=== PATIENT | male | born 1970 | race Caucasian/White ===

== ENCOUNTER 2017-07-20 15:42 | Emergency (ER) | payer MEDICARE, MEDICAID ==
--- NOTE | 2017-07-20 16:04 | EDM.PDOC ---
ED HPI GENERAL MEDICAL PROBLEM - General Stated Complaint: UTI Time Seen by Provider: 07/20/17 15:42 Source of Information: Reports: Patient, Family History Limitations: Reports: No Limitations - History of Present Illness INITIAL COMMENTS - FREE TEXT/NARRATIVE: 46 years old w m with h/o spina bifida, selfcathing, came to the ed with his family due to painful urination. Pt had UTIs in the past. No N/V/D or any other acute medical issues. No F/C. Onset: Unknown/Unsure Onset Date: 07/19/17 Onset Time: 07:00 Duration: Getting Worse, Intermittent Location: Reports: Abdomen Quality: Reports: Ache, Burning Severity: Mild Improves with: Reports: Medication Worsens with: Reports: Rest Context: Reports: Other (selfcathing due to spina bifida) bladder area Pain Score (Numeric/FACES): 4 - Related Data Allergies Allergy/AdvReac Type Severity Reaction Status Date / Time latex Allergy Respiratory Verified 07/20/17 17:27 Distress Home Meds: Home Meds Aspirin 81 mg PO DAILY 07/20/17 [History] Ciprofloxacin HCl [Cipro] 500 mg PO BID #20 tablet 07/20/17 [Rx] HCTZ/Triamterene [Dyazide 25-37.5 MG] 1 cap PO DAILY 07/20/17 [History] Levothyroxine 25 mcg PO DAILY 07/20/17 [History] Lisinopril 20 mg PO DAILY 07/20/17 [History] Omeprazole 20 mg PO DAILY 07/20/17 [History] fentaNYL [Fentanyl] 25 mcg .XX Q72H 07/20/17 [History] ED ROS GENERAL - Review of Systems Review Of Systems: See Below Constitutional: Reports: No Symptoms HEENT: Reports: No Symptoms Respiratory: Reports: No Symptoms Cardiovascular: Reports: No Symptoms Endocrine: Reports: No Symptoms GI/Abdominal: Reports: No Symptoms : Reports: Dysuria Musculoskeletal: Reports: Other (wheelchair bound) Skin: Reports: No Symptoms Neurological: Reports: No Symptoms Psychiatric: Reports: No Symptoms Hematologic/Lymphatic: Reports: No Symptoms Immunologic: Reports: No Symptoms ED EXAM, RENAL/ - Physical Exam Exam: See Below Exam Limited By: No Limitations General Appearance: Alert, WD/WN, Mild Distress Eye Exam: Bilateral Eye: Normal Inspection Ears: Normal External Exam Nose: Normal Inspection Throat/Mouth: Normal Inspection Head: Atraumatic, Normocephalic Neck: Normal Inspection, Supple, Non-Tender Respiratory/Chest: No Respiratory Distress, Lungs Clear, Normal Breath Sounds Cardiovascular: Normal Peripheral Pulses, Regular Rate, Rhythm, No Edema, No Gallop GI/Abdominal: Normal Bowel Sounds, Soft, Non-Tender, Pelvis Stable, Other ( suprapubic tenderness) (Male) Exam: No Hernia, Deferred Rectal (Males) Exam: Deferred Back Exam: Normal Inspection Extremities: Normal Inspection Neurological: Alert, Oriented, CN II-XII Intact, Normal Cognition, Other (pt is wheelchair bound) Psychiatric: Normal Affect, Normal Mood Skin Exam: Warm, Dry Lymphatic: No Adenopathy Course - Vital Signs Text/Narrative:: 46 years old w m with h/o spina bifida, selfcathing, came to the ed with his family due to painful urination. Pt had UTIs in the past. No N/V/D or any other acute medical issues. No F/C. PE: Suprapubic tenderness Labs: UTI with hematuria Impression: UTI with hematuria Tx: Cipro Reexam: Improved Plan: D/C with instructions Last Recorded V/S: Last Vital Signs Temp 36.3 C 07/20/17 17:25 Pulse 80 07/20/17 17:25 Resp 17 07/20/17 17:25 BP 120/75 07/20/17 17:25 Pulse Ox 97 07/20/17 17:25 - Orders/Labs/Meds Labs: Laboratory Tests 07/20/17 Range/Units 16:00 Urine Color Yellow (YELLOW) Urine Appearance Turbid (CLEAR) Urine pH 7.0 H (5.0-6.5) Ur Specific [place] 1.010 (1.010-1.025) Urine Protein Trace (NEGATIVE) mg/dL Urine Glucose (UA) Normal (NEGATIVE) mg/dL Urine Ketones Negative (NEGATIVE) mg/dL Urine Occult Blood Moderate H (NEGATIVE) Urine Nitrite Negative (NEGATIVE) Urine Bilirubin Negative (NEGATIVE) Urine Urobilinogen Normal (NEGATIVE) mg/dL Ur Leukocyte Esterase Large H (NEGATIVE) Urine RBC 5-10 (0) Urine WBC 75-100 H (0) Ur Squamous Epith Cells Occasional (NS,R,O) Urine Bacteria Many H (NS) Meds: Medications Discontinued Medications Generic Name Dose Route Start Last Admin Trade Name Kathy PRN Reason Stop Dose Admin Ciprofloxacin 500 mg 07/20/17 16:58 07/20/17 17:21 Ciprofloxacin Hcl PO 07/20/17 16:59 500 mg ONETIME ONE Administration Departure - Departure Time of Disposition: 17:00 Disposition: Home, Self-Care 01 Condition: Good Clinical Impression: UTI (urinary tract infection) Qualifiers: Urinary tract infection type: acute cystitis Hematuria presence: with hematuria Qualified Code(s): N30.01 - Acute cystitis with hematuria Spina bifida Qualifiers: Spinal region: lumbar Presence of hydrocephalus: without hydrocephalus Qualified Code(s): Q05.7 - Lumbar spina bifida without hydrocephalus - Discharge Information Prescriptions: Ciprofloxacin HCl [Cipro] 500 mg PO BID #20 tablet Instructions: Urinary Tract Infection, Adult, [id number] Referrals: PCP,Not In Area [Primary Care Provider] - Forms: ED Department Discharge Additional Instructions: Please increase water intake, Please take the meds as recommended. Please follow up, come back if your symptoms get worse acutely
[2017-07-20] MEDS ORDERED: Ciprofloxacin 500 MG Tab PO ONE (16:58)
== END 2017-07-20 17:25 | disposition home or self-care (01) ==
LOC: FB.ED 15:42
DX: N30.01 Acute cystitis with hematuria (principal); Q05.7 Lumbar spina bifida without hydrocephalus; Z79.82 Long term (current) use of aspirin; Z79.899 Other long term (current) drug therapy; Z91.040 Latex allergy status
CPT/HCPCS: 81001; 87086; 87088; 99283; A9270; 87186